=== PATIENT | male | born 1960 | race Caucasian/White ===

== ENCOUNTER 2018-03-08 06:37 | Day surgery (SDC) | payer OTHER ==
[~2018-03-08] VITALS: Ht 177.8 cm; Wt 88.6 kg
[2018-03-08 07:58] VITALS: BP 1122/80
[2018-03-08] MEDS ORDERED: COLACE100 MG PO (10:07)
[2018-03-08] MEDS ORDERED: PERCOCET 5/31 TABLET PO (10:07)
[2018-03-08 10:38] VITALS: BP 135/83
[2018-03-08 11:56] VITALS: BP 103/57
[2018-03-08 13:49] VITALS: BP 114/60
== END 2018-03-08 13:50 | disposition home or self-care (01) ==
LOC: SDC 06:37
DX: K64.8 Other hemorrhoids (principal); K64.4 Residual hemorrhoidal skin tags
CPT/HCPCS: 88304; J0131; J0330; J0585; J1100; J2250; J2405; J3010; S0074